=== PATIENT | male | born 1990 | race Caucasian/White ===

== ENCOUNTER 2021-03-16 17:44 | Emergency (ER) | payer OTHER ==
[~2021-03-16] VITALS: Ht 177.8 cm; Wt 104.5 kg
[2021-03-16 18:04] VITALS: BP 120/73
== END 2021-03-16 18:54 | disposition left against medical advice (07) ==
LOC: EMS 17:48
DX: R00.0 Tachycardia, unspecified (principal); T40.715A Adverse effect of cannabis, initial encounter; F41.9 Anxiety disorder, unspecified; R11.0 Nausea; Y92.89 Other specified places as the place of occurrence of the external cause
CPT/HCPCS: 93005; 99283